=== PATIENT | female | born 1995 | race Caucasian/White ===

== ENCOUNTER 2020-11-15 13:08 | Inpatient (IN) | payer OTHER ==
[~2020-11-15] VITALS: Ht 157.5 cm; Wt 81.6 kg
[2020-11-15] MEDS ORDERED: PRENATAL TABLE1 EAC1 PO (15:16)
== END 2020-11-17 16:12 | disposition home or self-care (01) | DRG 807 ==
LOC: OB/GYN 13:08 → LDR 13:08 → OB/GYN 16:26
PROVIDERS: ADMIT Specialist; ATTEND Specialist
PROC: 10E0XZZ Delivery of Products of Conception, External Approach (ICD-10-PCS; principal; 2020-11-15)
PROC: 4A1HXFZ Monitoring of Products of Conception, Cardiac Rhythm, External Approach (ICD-10-PCS; 2020-11-15)
DX: O42.02 Full-term premature rupture of membranes, onset of labor within 24 hours of rupture (principal); O99.824 Streptococcus B carrier state complicating childbirth; Z37.0 Single live birth; Z3A.37 37 weeks gestation of pregnancy; Z20.822 Contact with and (suspected) exposure to COVID-19